=== PATIENT | male | born 1965 | race Caucasian/White ===

== ENCOUNTER → 2022-04-07 | Outpatient (CLI) | payer BC ==
[2022-04-07 08:28] VITALS: BP 136/89; PULSE 64; RESP 18; TEMP 98.4
--- NOTE | 2022-04-07 08:54 | P.CON ---
Consult Note - . Consult date: 04/07/22 Assessment/Plan:: HISTORY OF PRESENT ILLNESS: 56 yr old male as a referral from Dr Paez NPC presents today with severe and chronic LBP secondary to DDD and facet arthropathy for evaluation. He states his pain level is 5 out of 10 in intensity, constant, stabbing, sharp pain in the left lower aspects of his lumbar spine with radiation of pain to his L knee and foot. Pain is provoked with heat, standing and walking. Pain is alleviated with medications ([place], axial), injections, ice, 8 weeks stent of physical therapy in December 2021, chiropractic treatment one month ago but his and [employer] said no, massage in the past which worsened his pain, home stretching regimen, repositioning and rest. PMH: Hyperlipidemia, GERD PSH: L Lumbar RFA x 2 SH: Negative x 3. Works in [employer] FH: Non contributory All: NKDA Meds: See list REVIEW OF ORGAN SYSTEMS: CONSTITUTIONAL: No fevers or chills. No recent weight loss. HEENT: No visual acuity loss, eye pain, difficulties with hearing. No nosebleeds. No difficulty swallowing. RESPIRATORY: Denies any troubles with breathing or dyspnea on exertion. CARDIOVASCULAR: Denies any chest pain, palpitations, or recent heart attacks. GASTROINTESTINAL: Denies fatty food intolerance. Has change in bowel habits and gas bloat. GENITOURINARY: Denies any blood in urine. Has increased urinary frequency. NEUROLOGICAL: + numbness and tingling along the distal extremities. No seizure disorders or headaches. MUSCULOSKELETAL: + back pain SKIN: No skin cancer. No rash. PSYCHIATRIC: Denies current depression or suicidal thoughts. ENDOCRINE: Denies current thyroid disorders. Denies any blood sugar glucose intolerance. HEME/LYMPHATIC: Denies any lumps and bumps around the neck. History of deep venous thrombosis. ALLERGY/IMMUNOLOGY: No immunoglobulin therapy. No immune deficiencies. BREAST: Denies current breast lumps, pain or nipple discharge. Physical Examinations : Constitutional : Cooperative , not in acute distress . HEENT: Neck supple. No Lymphadenopathy. Normal thyroid size . Eyes no ptosis , no icterus, no photophobia . Hearing intact. Normal oropharynx. No Thrush. Respiratory : Chest clear to auscultations bilaterally. No wheezing. No rhonchi. Cardiovascular : Regular rate and rhythm , S1 / S2. No S3 . No S4. Gastrointestinal : Abdomen soft. No tenderness. Bowel sounds x 4. No organomegaly . Genitourinary : Deferred. Neurologic : Cranial nerve II to XII intact. No focal neurological deficits. Psychiatric : alert & oriented x 3. Matching mood & appropriate affect. Judgment & insight intact. Lymphatic No Lymphadenopathy. Musculoskeletal : Cervical Spine Motor strength in the deltoid and biceps: Normal right side. Normal Left side Motor strength biceps and the wrist extensors: Normal right side . Normal left side Motor strength in the triceps muscle: Normal right side. Normal left side Deep tendon reflexes: Normal at the biceps. Normal at Brachioradialis. Normal at triceps Cervical facet loading test: positive bilaterally Spurling test: positive bilaterally Neck distraction test: positive bilaterally Malick sign: positive bilaterally Lumbar spine Motor strength lower extremities ,thigh and legs 5/5 Right side , 5/5 Left side Deep tendon reflexes : Normal Knee Jerk. Normal Ankle Jerk Vertebral body tenderness over Lumbar facet Loading Test: positive Right / positive Left over L4-L5, L5-S1 Range of motion of the lumbar spine Flexion 30 degrees, extension 10 degrees Straight Leg Raise test: Left/ Right positive at degree Cheri test: positive right / positive left. Severe tenderness over the Sacroiliac joint on the Right / Left sides Gaenslen test: positive bilaterally Seated flexion test: positive bilaterally. Sacral spine : Severe tenderness over the Sacroiliac joint: right side / left side Range of motion: Flexion of the lumbar spine <60 degrees Range of motion: Extension of the lumbar spine <20 degrees Gaenslen's Test positive Ruperto's Test positive Cheri test: positive right side / left side Thigh Thrust Test Sacral Thrust Test Imaging: X ray of Lumbar spine from 03/04/22 reviewed Assessment/ Plan : Lumbar DDD MRI without contrast of Lumbar spine re: M51.36 Obtain records of L RFA L3-L5 from a [facility] physician's office All questions answered. I have spent greater than 50 minutes on patient care today. Dr Alcala was available by phone for the evaluation of this patient. The time was used to review the medical records including relevant urine studies and Prescription history (MAPs), review of the available imaging, evaluation and examination of the patient, coordination of care with the medical staff and if applicable referring physicians, as well as creation of the medical record PQRS Measure Charge Sheet Mode of Arrival: Ambulatory - Pain Location Lower Back Non-Pharmacological Interventions: Chiropractic Treatment, Ice, Massage, Physical Therapy Pharmacological Interventions: Epidural, PRN Medication, Scheduled Medication, Topical Medication PQRS Narrative: Blood Pressure 136/89 Pain Intensity [Lower Back] 5 Scale Used Numeric (1 - 10) Hx Alcohol Use (MH) No
== END | disposition home or self-care (01) ==
LOC: PNWHC3 07:51
PROVIDERS: ATTEND Specialist
DX: M54.50 Low back pain, unspecified (principal)
CPT/HCPCS: 99211

== ENCOUNTER → 2022-08-26 | Outpatient (CLI) | payer BC ==
[2022-08-26 08:04] VITALS: BP 145/93; PULSE 68; RESP 18
--- NOTE | 2022-08-26 13:00 | P.PAINPG ---
PQRS Measure Charge Sheet Comment: A 57 yr old male with a history of severe and chronic low back pain secondary to lumbar degenerative disc diseases and lumbar spondylosis with facet arthropathy without myelopathy presents today for evaluation for MRI and medication refills. Pain level is currently at 5/10 in intensity, constant, localized in lumbar spine, stabbing in character w shooting towards the BLEs. Pain is provoked by cold weather and laying supine for periods of 2 hr or more. Pain is alleviated with PT in 2020 without relief, home stretching regimen, massage therapy weekly, chiropractic treatments discontinued due to recommendation from Ortho, heat, ice without relief, medications ([place], Lyrica), repositioning and rest. Interventional pain procedures completed include Denies Patient is currently on [place], Lyrica Patient denies any side effects of the medication(s), denies excessive drowsiness or sleepiness, denies suicidal ideation and reports that the current pain medication is helping to control the pain and improve activities of daily living. Patient denies any motor or sensory deficits. Patient denies any fever or night sweats, denies any change in the bowel movements or urination. Physical Examination: -Constitutional: Cooperative. Not in acute distress . - Neurologic: Cranial nerve II to XII intact. No focal neurological deficits. - Psychatric: Alert & oriented x 3. Matching mood & appropriate affect. Judgment and insight intact. - Musculoskeletal: Cervical spine: Muscle bulk/ tone/ strength in the bilateral upper extremities normal Vertebral body tenderness to palpation over Spurling test positive Distraction test positive Facet loading test positive Thoracic spine Muscle bulk / tone/ strength in the bilateral paraspinal muscles normal Vertebral body tender to palpation over Facet loading test positive Lumbar spine: Motor bulk/ tone/ strength lower extremities , thigh and legs : 5/5 Deep tendon reflexes : Normal Knee Jerk. Normal Ankle Jerk . Vertebral body tenderness to palpation over Lumbar Facet Loading Test positive w jump reflex over BL L4-L5, L5-S1 facets Straight Leg Raise: positive at 30 degrees right side/ left side Gaenslen's Test positive Sacral spine : Severe tenderness over the Sacroiliac joint: right side / left side Range of motion: Flexion of the lumbar spine <60 degrees Range of motion: Extension of the lumbar spine <20 degrees Gaenslen's Test positive Ruperto's Test positive Cheri test: positive right side / left side Thigh Thrust Test Sacral Thrust Test Imaging: MRI without contrast of the lumbar spine from 08/21/22 reviewed. Assessment and plan: Chronic low back pain secondary to lumbar degenerative disc disease , lumbar spondylosis with facet arthropathy without myelopathy Recommendation of BL RFA L4-L5, L5-S1. Pt states he's had an RFA previously at [facility] w Dr Mtz. Will obtain records. Risks, benefits of procedure discussed and pt verbalized understanding. Denies anticoagulant use or medical history of diabetes. All patient questions answered I have spent less than 30 minutes on patient care today. Dr Alcala was kay ilable by phone for the evaluation of this patient. The time was used to review the medical records including relevant urine studies and Prescription history (MAPs), review of the available imaging, evaluation and examination of the patient, coordination of care with the medical staff and if applicable referring physicians, as well as creation of the medical record PQRS Narrative: Hx Alcohol Use (MH) No Controlled Substance Measures - Controlled Substance Measures Is patient prescribed a controlled substance at discharge?: No
== END | disposition home or self-care (01) ==
LOC: PNWHC3 07:18
PROVIDERS: ATTEND Specialist
DX: M47.896 Other spondylosis, lumbar region (principal)
CPT/HCPCS: 99211

== ENCOUNTER 2022-10-15 12:31 | Day surgery (SDC) | payer BC ==
[2022-10-14 09:13] VITALS: BMI 28.8
[~2022-10-15 12:31] MED LIST: LACTATED RINGERS 1,000 ML IV SCH; LIDOCAINE 1% (10MG/ML) FOR IV START INTRADERMA PRN
[2022-10-15 13:10] VITALS: TEMP 97.2
[2022-10-15] MEDS ORDERED: MIDAZOLAM 2 MG/2 ML VIAL ONE (13:29)
[2022-10-15] MEDS ORDERED: fentaNYL (PF) 50 MCG/ML 2 ML AMP ONE (13:29)
[2022-10-15] MEDS ORDERED: LACTATED RINGERS 1,000 ML IV SCH (13:30)
--- NOTE | 2022-10-15 13:47 | P.PCN ---
Date of Procedure: 10/15/22 Description of Procedure: Pre- and Post-operative Diagnosis: Lumbar facet arthropathy, and lumbar spon dylosis without myelopathy. Procedure: Left side L4-5 radiofrequency thermocoagulation of medial branch under fluoroscopic guidance Left side L5-S1 dorsal ramus radiofrequency thermocoagulation under fluoroscopic guidance Surgeon: Nael Quinn Anesthesia: Local: 1% Lidocaine, IV sedation : Midazolam 2 mg, and fentanyl 100 micrograms. Complications: None Estimated blood loss: None. Specimen removed: None Fluoroscopic image: Saved to patient electronic medical records. Indications for Procedure: The patient is well known to pain clinic for his chronic low back pain management. The lumbar facet loading test was positive with a clinical diagnosis of lumbar facet arthropathy. Patient had marked decrease in pain after the diagnostic medial branch procedure. Came here for radiofrequency ablation for longer pain relief. PROCEDURE DESCRIPTION: The patient was seen and identified in the preoperative area. Risks, benefits, complications, and alternatives were discussed with the patient. The patient agreed to proceed with the procedure and signed the consent. IV was started. Vital signs were stable. Patient was taken to the procedure room and timeout was completed. The patient was placed in the prone position on procedure table and a pillow was placed under the abdomen to reduce lumbar lordosis. The lumbosacral area was prepped and draped in the usual sterile fashion. Critical pause was taken. Vital signs were closely monitored during the procedure. The fluoroscopic camera was placed in the anteroposterior position to identify the junction of superior articular process and its corresponding injection with its transverse process of L4, L5, S1, which were anesthetized with 1% lidocaine. We used 18-gauge 100-mm curved, sharp radiofrequency cannula with 10- mm active tip for the procedure. The first cannula was guided by fluoroscopy to the S1 superior articular process and its corresponding junction with its ala. The second cannula was guided by fluoroscopy into the L5 superior articular process and its corresponding junction with its transverse process and pedicle. The third cannula was guided by fluoroscopy into the L4 SAP and its corresponding junction with its transverse process and its pedicle. After confirmation of needle tip position on oblique view, each site underwent motor testing at 2 Hz and 0 to 2.5 volts, and there was good motor stimulation in the back and no radicular symptoms or paresthesias. After confirmation of motor testing, 0.5 mL of block solution injected at each site . Block solution contained 2 mL of 0.5% ropivacaine preservative free mixed with 40 MG of Kenalog. At this time, each site was ablated using continuous radiofrequency mode at 80 degrees Celsius for 90 seconds at each level. At the end of the procedure, each needle was retracted approximately 1 cm and the skin was infiltrated with 0.5% ropivacaine preservative free 1 ml at each site. Skin was cleansed and bandages were applied. Disposition : The patient tolerated the procedure very well. The patient was transferred to the recovery room and remained stable until discharged home. The patient was given detailed discharge instructions for infection, bleeding, and increased pain at the injection site, and was advised to seek immediate medical attention should significant side effects develop. The patient will be scheduled with Pain Clinic within 4 weeks.
[2022-10-15 13:54] VITALS: PULSE 73; RESP 16
--- NOTE | 2022-10-15 13:55 | FL ---
EXAMINATION TYPE: FL guided pain mgmt statistic DATE OF EXAM: 10/15/2022 CLINICAL HISTORY: Low back pain. TECHNIQUE: Fluoroscopy. COMPARISON: None. FINDINGS: Fluoroscopic guidance was provided during pain relief procedure performed by Dr. Carmona . A total of 13 seconds of fluoroscopic time was utilized during the procedure and 3 spot intraoperat emiliana images are acquired. Images acquired shows needle localization at several levels in the lumbar s pine. IMPRESSION: As Above.
[2022-10-15 14:03] VITALS: BP 126/88
== END 2022-10-15 14:18 | disposition home or self-care (01) ==
LOC: ORPAIN 12:31
DX: M47.816 Spondylosis without myelopathy or radiculopathy, lumbar region (principal); G89.29 Other chronic pain; E78.5 Hyperlipidemia, unspecified; K21.9 Gastro-esophageal reflux disease without esophagitis; K91.0 Vomiting following gastrointestinal surgery; M19.90 Unspecified osteoarthritis, unspecified site; Z79.1 Long term (current) use of non-steroidal anti-inflammatories (NSAID); Z79.899 Other long term (current) drug therapy; Z98.890 Other specified postprocedural states
CPT/HCPCS: 64635; 64636; J2250; J3010

== ENCOUNTER → 2022-11-04 | Outpatient (CLI) | payer BC ==
[2022-11-04 08:16] VITALS: BP 135/83; PULSE 71; RESP 18; TEMP 98.4
--- NOTE | 2022-11-04 08:33 | P.PAINPG ---
Subjective Progress Note Date: 11/04/22 Principal diagnosis: Lumbar back pain Mr. Yo is a 57 -year-old pleasant male came to the [facility] pain clinic for postprocedure evaluation follow-up visit for left L4-L5, and L5-S1 medial branch radiofrequency ablation on 10/15/2022 . Patient has ongoing pain for many years. As per patient he had more than 90% pain relief. Patient describes pain is aching, throbbing, type of pain. His pain is not radiating to his lower extremities. Patient rated pain levels are 2 out of 10 in severity. With the help of medications pain levels are 2-4 out of 10 in severity. Activities making pain worse. Medications, resting, interventional procedures helping in relieving patient's pain. Patient pain some days better than others. Overall activities improved after intervention procedures. Denied any side effects with the medications. Denied any bowel or bladder problems at this time. He is not using any walking aids at this time. Patient denies any suicidal or homicidal ideations intent or plan. Patient denies any auditory or visual hallucinations. Patient denied any red flag symptoms related to pain. 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 Sensation grossly intact Lower extremity: Normal strength, and normal range of motion. Sensation grossly intact. Lumbar spine: Paravertebral tenderness: positive , multiple trigger points positive Lumbar facet load test : positive Sacroiliac joint tenderness: Negative Thigh thrust test: Negative - Constitutional Constitutional Comment(s): 13 points review of symptoms negative except as mentioned in the history of present illness. Assessment and Plan Assessment: Lumbar spondylosis without myelopathy Myofascial pain syndrome Chronic pain syndrome Plan: #1 Diagnoses, prognosis, and multiple treatment options including but not limited to physical therapy, interventional therapy, adjunct medication therapy, narcotic medication, and surgical options were discussed with the patient. And all questions were answered to the patient's satisfaction. #2 treatment plan agreement : Patient was thoroughly discussed regarding the treatment options, alternatives, and importance of exercises as tolerated. Patient clearly understood. #3 Patient was counseled on importance of regular exercise. Including grazyna chi, aerobic exercises as tolerated. Which helps for chronic pain, and overall well- being. Patient also counseled regarding importance of weight control rolling chronic pain, and overall other health issues. By altering diet habits, minimizing sugar intake, and processed foods helps in minimizing Inflammation. #4 investigations: MAPS- reviewed , urine drug test-none #5 diagnostic tests: None at this time #6 consultation : None # 7 interventional procedures: None at this time. #8 medications #1 Tylenol 500 mg by mouth every 12 to every 8 hours as needed, total dose not more than 2 g per day Medication side effects, complications, long-term consequences discussed with the patient. Patient recommended to contact the pain clinic if noticed any issues with given medications. #9 morphine milligrams equivalents dose ( MME) per day: 0 from the pain clinic. # 10 TENS unit's, and percussion massage device #11 disposition: scheduled to follow up with pain clinic as needed in future Time with Patient: Less than 30 PQRS Measure Charge Sheet Measure #130: Documentation of Current Meds in Medical Chart: Patient's medications documented in chart Measure #226: Tobacco Use: Screen & Cessation Intervention: Pt not a tobacco user Measure #111: Pneumonia Vaccination: Pneumococcal vaccine NOT administered or previously given Measure #47: Advance Care Plan: Advance care planning discussed & documented, pt chose/unable to give Measure #412: Opioid Treatment Agreement: No documentation of signed opioid treatment agreement Measure #408: Opioid Therapy Follow-up Evaluation: Patient had NO f/u eval minimum every 3 months during opioid therapy Measure #317: Preventitive Care & Scrn High Bld Press & F/U: Normal blood pressure, f/u not required Measure #128: Body Mass Index (BMI) Screening & Follow-up: BMI documented within normal parameters Measure #131: Pain Assessment & Follow-up: Pain positive & plan documented Measure #431: Unhealthy Alcohol Use Preventative Care & Scrn: Patient not identified as an unhealthy alcohol user Mode of Arrival: Ambulatory - Pain Location Left Lower Back Non-Pharmacological Interventions: Ice Pharmacological Interventions: Block, Scheduled Medication PQRS Narrative: Blood Pressure 135/83 Pain Intensity [Left Lower 2 Back] Scale Used Numeric (1 - 10) Hx Alcohol Use (MH) No Home Medications: Ambulatory Orders HYDROcodone/APAP 7.5-325MG [[place] 7.5-325] 1 tab PO Q6HR PRN 10/14/22 Omeprazole 20 mg PO DAILY 10/14/22 Simvastatin [Zocor] 20 mg PO DAILY 10/14/22 Controlled Substance Measures - Controlled Substance Measures Is patient prescribed a controlled substance at discharge?: No
== END ==
LOC: PNWHC3 07:55
DX: M47.816 Spondylosis without myelopathy or radiculopathy, lumbar region (principal); M79.10 Myalgia, unspecified site; G89.4 Chronic pain syndrome
CPT/HCPCS: 99211

== ENCOUNTER → 2024-01-27 | Outpatient (CLI) | payer BC ==
[2024-01-27 17:04] LABS: HCT 46.5 % (39.6-50.0); HGB 15.3 g/dL (13.0-17.0); MCH 29.7 pg (27.0-32.0); MCHC 32.9 g/dL (32.0-37.0); MCV 90.3 FL (80.0-97.0); Mean Platelet Volume 11.6 FL (9.5-12.2); NRBC Per 100 WBC 0 X 10*3/uL (0.00-0.01); Platelet Count 289 X 10*3/uL (140-440); RBC 5.15 X 10*6/uL (4.40-5.60); RDW 13.2 % (11.5-14.5); WBC 6.34 X 10*3/uL (4.50-10.00)
[2024-01-27 17:29] LABS: Carbon Dioxide 27.5 mmol/L (21.6-31.8); Chloride 106 mmol/L (96-109); Potassium 4.9 mmol/L (3.5-5.5); Sodium 142 mmol/L (135-145)
== END | disposition home or self-care (01) ==
LOC: LABPAT 09:31
PROVIDERS: ATTEND Internal Medicine Interventional Cardiology
DX: Z01.812 Encounter for preprocedural laboratory examination (principal); I49.3 Ventricular premature depolarization
CPT/HCPCS: 36415; 80051; 82565; 84520; 85027

== ENCOUNTER → 2024-02-01 | Day surgery (SDC) | payer BC ==
[~2024-02-01] MED LIST changes: +ALPRAZolam 0.25 MG TAB PO PRN; +ALPRAZolam 0.5 MG TAB PO PRN; +ASPIRIN 325 MG TAB PO ONE; +ASPIRIN 81 MG PO SCH; +ATORVASTATIN 20 MG TAB PO SCH; +HEPARIN SODIUM 1,000 UN/ML (10ML VL) ONE; +HEPARIN SODIUM,PORCINE (1 ML) 2,500 UNIT in SODIUM CHLORIDE 0.9% 250 ML IRRIGATION PRN; +HEPARIN SODIUM,PORCINE 10,000 UNIT in SODIUM CHLORIDE 0.9% 1,000 ML IRRIGATION PRN; -LACTATED RINGERS 1,000 ML IV SCH; -LIDOCAINE 1% (10MG/ML) FOR IV START INTRADERMA PRN; +METOPROLOL SUCCINATE (ER) 25 MG TAB.ER.24H PO SCH; +NITROGLYCERIN SL TABS 0.4 MG TAB SUBLINGUAL PRN; +RX INFO: IV CONTRAST WAS GIVEN 1 EACH MISC MISCELLANE PRN; +SODIUM CHLORIDE 0.9% 1,000 ML IV SCH; +VERAPAMIL 2.5 MG/ML 2 ML AMP ONE; +fentaNYL (PF) 50 MCG/ML 2 ML AMP ONE
[2024-02-01] MEDS: SODIUM CHLORIDE 0.9% 1,000 ML in EMPTY BAG 1 BAG IV SCH (07:40)
[2024-02-01 07:48] VITALS: RESP 16; TEMP 96.6
[2024-02-01] MEDS: MIDAZOLAM 2 MG/2 ML VIAL IVP ONE (09:47)
[2024-02-01] MEDS: fentaNYL (PF) 50 MCG/ML 2 ML AMP IVP ONE ×2 (09:47)
[2024-02-01] MEDS: LIDOCAINE 2% (PF) 20 MG/ML 5 ML VIAL SQ ONE (09:48)
[2024-02-01] MEDS: VERAPAMIL SYRINGE (5 MG/10 ML) INTRAARTER ONE (09:50)
[2024-02-01] MEDS: HEPARIN SODIUM 1,000 UN/ML (10ML VL) IVP ONE (09:54)
[2024-02-01] MEDS: IOPAMIDOL-370 100ML BTL INJ ONE (10:13)
--- NOTE | 2024-02-01 10:18 | P.CARDCATH ---
Date of Procedure: 02/01/24 Description of Procedure: Cardiac Catheterization: The patient is a 58-year-old male who recently was found evidence of cardiomyopathy in addition to frequent ventricular ectopic activity. He has a history of hyperlipidemia. Recommendations were made regarding cardiac catheterization, the risks and the complications were discussed with the patient who is in full understanding and agreement. Procedure Description: Patient was brought to lab support tech in fasting semi-sedated state after receiving Fentanyl and Benadryl achieiving moderate conscious sedated state. Using Xylocaine Anesthesia and modified Seldinger technique, a 6-Indian sheath was introduced in the right radial artery . Subsequently, selective coronary angiography was performed using a 5-Indian 3.5 bend Bety catheter. Multiple views of the coronary artery including hemiaxial views were obtained. The right Bety catheter was used to cross the aortic valve and LVEDP was calculated. Following that, catheter and sheath were removed. Hemostasis was obtained with deployment of vascular band . There was no immediate complication. Patient was returned to room in stable condition. Of note, the patient received a total of 4500 units of intravenous heparin as well as intra-arterial verapamil. Findings: Left main: This is a large size vessel, bifurcating into LAD and left circumflex, left main has no obstructive disease LAD: This is a large size vessel, giving rise to a large proximal diagonal branch. The LAD and its branches have no significant obstructive disease Left circumflex: This is a nondominant vessel giving rise to 1 large obtuse marginal branch that has a 20% plaque in the midsegment the rest of the vessel has no high-grade stenosis RCA: This is a dominant vessel, bifurcating distally to PDA and PLV. The proximal right coronary artery has a 20% eccentric plaque, the rest of the vessel has no high-grade stenosis Left Ventriculogram: Not performed Hemodynamics: There was no gradient across the aortic valve, LVEDP was 8-10 mmHg Conclusion: 1. Mild obstructive disease in the left circumflex and RCA 2. No significant obstructive disease in the LAD 3. Right dominance 4. Normal LVEDP Recommendations: The patient will continue on present medical regimen, he will be further evaluated regarding the etiology of his cardiomyopathy is possible cardiac MRI to guide his treatment. The findings and the recommendations were discussed with the patient and the family and they were in full understanding and agreement. Duration of sedation is 15 minutes.
[2024-02-01 12:48] VITALS: BP 118/71; PULSE 54
== END | disposition home or self-care (01) ==
LOC: CATHCVL 07:23
PROVIDERS: ATTEND Internal Medicine Interventional Cardiology
DX: I21.9 Acute myocardial infarction, unspecified (principal); I42.8 Other cardiomyopathies; I73.9 Peripheral vascular disease, unspecified; E78.2 Mixed hyperlipidemia; I49.3 Ventricular premature depolarization; Z79.82 Long term (current) use of aspirin; Z79.899 Other long term (current) drug therapy
CPT/HCPCS: 93458; C1769 ×3; C1894; J2250; J3010; J1644; Q9967; J2001

== ENCOUNTER → 2024-04-30 | Outpatient (CLI) | payer BC ==
[2024-04-30 14:29] VITALS: BP 149/85; PULSE 72; RESP 16
--- NOTE | 2024-04-30 15:03 | P.PAINPG ---
PQRS Measure Charge Sheet Comment: A 58 yr old male with a history of severe and chronic LBP > 6 mo secondary to DDD and spondylosis with facet arthropathy without myelopathy presents today for evaluation. Pt underwent a L RFA L3-L5 in Oct 2022 when he experienced 99% pain relief x 2 yrs s/p procedure. Pain level is provoked at 6 /10 in intensity, constant, localized in the lumbar spine, predominantly axial, sharp in character w occasional shooting towards the BL hips and RLE. Pain is provoked by repositioning, heat. Pain is alleviated with PT x 6 wks which ended in Aug 2023 (lumbar), physician guided exercises every other day since Aug 2023, massage therapy weekly x 3 mo in Nov 2022 (cervical), chiropractic treatments as needed w last appt in Oct 2022, ice, medications, repositioning and rest. Oswestry axial pain score of 17. Interventional pain procedures completed include L RFA L3-L5 (Oct 2022), DESEAN C5- C6 x1 Patient is currently on [place], Advil Patient denies any side effects of the medication(s), denies excessive drowsiness or sleepiness, denies suicidal ideation and reports that the current pain medication is helping to control the pain and improve activities of daily living. Patient denies any motor or sensory deficits. Patient denies any fever or night sweats, denies any change in the bowel movements or urination. Physical Examination: -Constitutional: Cooperative. Not in acute distress . - Neurologic: Cranial nerve II to XII intact. No focal neurological deficits. - Psychatric: Alert & oriented x 3. Matching mood & appropriate affect. Judgment and insight intact. - Musculoskeletal: Cervical spine: Muscle bulk/ tone/ strength in the bilateral upper extremities normal Vertebral body tenderness to palpation over Spurling test positive Distraction test positive Facet loading test positive Thoracic spine Muscle bulk / tone/ strength in the bilateral paraspinal muscles normal Vertebral body tender to palpation over Facet loading test positive Lumbar spine: Motor bulk/ tone/ strength lower extremities , thigh and legs : 5/5 Deep tendon reflexes : Normal Knee Jerk. Normal Ankle Jerk . Vertebral body tenderness to palpation over Lumbar Facet Loading Test positive L L4-L5, L5-S1 Straight Leg Raise: positive at 30 degrees right side/ left side Gaenslen's Test positive Sacral spine : Severe tenderness over the Sacroiliac joint: right side / left side Range of motion: Flexion of the lumbar spine <60 degrees Range of motion: Extension of the lumbar spine <20 degrees Gaenslen's Test positive Cheri test: positive right side / left side Thigh Thrust Test Sacral Thrust Test Imaging: MRI non contrast of the lumbar spine from 08/21/22 reviewed Assessment and plan: Chronic neck pain and LBP secondary to DDD, spondylosis with facet arthropathy without myelopathy Recommendation of L RFA L3-L5. Exhibited substantial pain relief w prior L RFA L3-L5 procedure. Risks, benefits of procedure discussed and pt verbalized understanding. Protocol for discontinuation/ continuation of medications chito procedure discussed. Minimal anesthesia including Fentanyl and Versed if clinically indicated. All patient questions answered I have spent less than 30 minutes on patient care today. Dr Alcala was available by phone for the evaluation of this patient. The time was used to review the medical records including relevant urine studies and Prescription history (MAPs), review of the available imaging, evaluation and examination of the patient, coordination of care with the medical staff and if applicable referring physicians, as well as creation of the medical record - Pain Location Lower Back Non-Pharmacological Interventions: Inactivity, Sitting Pharmacological Interventions: Epidural PQRS Narrative: Hx Alcohol Use (MH) No Home Medications: Ambulatory Orders HYDROcodone/APAP 7.5-325MG [[place] 7.5-325] 1 tab PO Q6HR PRN 10/14/22 Omeprazole 20 mg PO DAILY 10/14/22 Simvastatin [Zocor] 40 mg PO DAILY 10/14/22 Aspirin 81 mg PO DAILY 01/27/24 Cetirizine HCl [Zyrtec] 10 mg PO DAILY 01/27/24 Metoprolol Succinate [Metoprolol Succinate ER] 25 mg PO DAILY 01/27/24 Controlled Substance Measures - Controlled Substance Measures Is patient prescribed a controlled substance at discharge?: No
== END ==
LOC: PNWHC3 14:14
PROVIDERS: ATTEND Specialist
DX: M51.37 Other intervertebral disc degeneration, lumbosacral region (principal); M47.817 Spondylosis without myelopathy or radiculopathy, lumbosacral region
CPT/HCPCS: 99211

== ENCOUNTER → 2024-05-25 | Day surgery (SDC) | payer BC ==
[2024-05-23 15:21] VITALS: BMI 29.3
[~2024-05-25] MED LIST changes: -ALPRAZolam 0.25 MG TAB PO PRN; -ALPRAZolam 0.5 MG TAB PO PRN; -ASPIRIN 325 MG TAB PO ONE; -ASPIRIN 81 MG PO SCH; -ATORVASTATIN 20 MG TAB PO SCH; -HEPARIN SODIUM 1,000 UN/ML (10ML VL) ONE; -HEPARIN SODIUM,PORCINE (1 ML) 2,500 UNIT in SODIUM CHLORIDE 0.9% 250 ML IRRIGATION PRN; -HEPARIN SODIUM,PORCINE 10,000 UNIT in SODIUM CHLORIDE 0.9% 1,000 ML IRRIGATION PRN; -METOPROLOL SUCCINATE (ER) 25 MG TAB.ER.24H PO SCH; +MIDAZOLAM 2 MG/2 ML VIAL ONE; -NITROGLYCERIN SL TABS 0.4 MG TAB SUBLINGUAL PRN; +ROPIVACAINE 5MG/ML 20ML VIAL ONE; -RX INFO: IV CONTRAST WAS GIVEN 1 EACH MISC MISCELLANE PRN; -SODIUM CHLORIDE 0.9% 1,000 ML IV SCH; +TRIAMCINOLONE ACETONIDE 40 MG/ML 1 ML VIAL ONE; -VERAPAMIL 2.5 MG/ML 2 ML AMP ONE; +hydrALAZINE HCL 20 MG/ML 1 ML VIAL ONE
[2024-05-25 08:29] VITALS: TEMP 97.7
[2024-05-25] MEDS: LACTATED RINGERS 1,000 ML IV SCH (08:42)
[2024-05-25] MEDS: IV FLUID CONTINUATION 1,000 ML IV ONE ×2 (08:44→09:57)
--- NOTE | 2024-05-25 09:54 | P.PCN ---
Date of Procedure: 05/25/24 Description of Procedure: Pre- and Post-operative Diagnosis: Lumbar facet arthropathy, and lumbar spon dylosis without myelopathy. Procedure: Left side L4-5 radiofrequency thermocoagulation of medial branch under fluoroscopic guidance Left side L5-S1 dorsal ramus radiofrequency thermocoagulation under fluoroscopic guidance Surgeon: Nael Quinn Anesthesia: Local: 1% Lidocaine, IV sedation : Midazolam 2 mg, and fentanyl 100 micrograms. patient was examined and appeared to the procedure. Sedation R and supervision timings: [id number] [phone] Complications: None Estimated blood loss: None. Specimen removed: None Fluoroscopic image: Saved to patient electronic medical records. Indications for Procedure: The patient is well known to pain clinic for his chronic low back pain management. The lumbar facet loading test was positive with a clinical diagnosis of lumbar facet arthropathy. Patient had marked decrease in pain after the diagnostic medial branch procedure. Came here for radiofrequency ablation for longer pain relief. PROCEDURE DESCRIPTION: The patient was seen and identified in the preoperative area. Risks, benefits, complications, and alternatives were discussed with the patient. The patient agreed to proceed with the procedure and signed the consent. IV was started. Vital signs were stable. Patient was taken to the procedure room and timeout was completed. The patient was placed in the prone position on procedure table and a pillow was placed under the abdomen to reduce lumbar lordosis. The lumbosacral area was prepped and draped in the usual sterile fashion. Critical pause was taken. Vital signs were closely monitored during the procedure. The fluoroscopic camera was placed in the anteroposterior position to identify the junction of superior articular process and its corresponding injection with its transverse process of L4, L5, S1, which were anesthetized with 1% lidocaine. We used 18-gauge 100-mm curved, sharp radiofrequency cannula with 10- mm active tip for the procedure. The first cannula was guided by fluoroscopy to the S1 superior articular process and its corresponding junction with its ala. The second cannula was guided by fluoroscopy into the L5 superior articular process and its corresponding junction with its transverse process and pedicle. The third cannula was guided by fluoroscopy into the L4 SAP and its corresponding junction with its transverse process and its pedicle. After confirmation of needle tip position on oblique view, each site underwent motor testing at 2 Hz and 0 to 2.5 volts, and there was good motor stimulation in the back and no radicular symptoms or paresthesias. After confirmation of motor testing, 0.5 mL of block solution injected at each site . Block solution contained 1 mL of 0.5% ropivacaine preservative free mixed with 40 MG of Kenalog. At this time, each site was ablated using continuous radiofrequency mode at 80 degrees Celsius for 90 seconds at each level. At the end of the procedure, each needle was retracted approximately 1 cm and the skin was infiltrated with 0.5% ropivacaine preservative free 1 ml at each site. Skin was cleansed and bandages were applied. preop VAS: 3 out of 10 Postop VAS: 1 out of 10 Disposition : The patient tolerated the procedure very well. The patient was transferred to the recovery room and remained stable until discharged home. The patient was given detailed discharge instructions for infection, bleeding, and increased pain at the injection site, and was advised to seek immediate medical attention should significant side effects develop. The patient will be scheduled with Pain Clinic within 4 weeks.
[2024-05-25 10:03] VITALS: RESP 16
[2024-05-25 10:31] VITALS: PULSE 72
[2024-05-25 10:56] VITALS: BP 101/62
[2024-05-25 15:32] LABS: Hepatitis B Surface Antigen Nonreactive (Nonreactive); Hepatitis C IgG Antibody Nonreactive (Nonreactive)
--- NOTE | 2024-05-25 20:45 | FL ---
EXAMINATION TYPE: FL guided pain mgmt statistic DATE OF EXAM: 05/25/2024 FLUOROSCOPY Left lumbar Rad Freq 11sec fluoro time .[id number] Carmona 4 images submitted.
== END ==
LOC: ORPAIN 07:40
DX: M47.816 Spondylosis without myelopathy or radiculopathy, lumbar region (principal); G89.29 Other chronic pain; Z79.82 Long term (current) use of aspirin
CPT/HCPCS: 86803; 86701; 87340; 64635; 64636; 99152; 99153; J2250; J0360; J3301; J3010; J2795

== ENCOUNTER → 2024-08-22 | Outpatient (CLI) | payer BC ==
[2024-08-22 14:47] VITALS: BP 143/72; PULSE 60; RESP 16
--- NOTE | 2024-08-23 13:55 | P.PAINPG ---
PQRS Measure Charge Sheet Comment: A 59 yr old male with a history of severe and chronic LBP > 6 mo secondary to radiculopathy, spondylosis with facet arthropathy without myelopathy presents today for evaluation. Pain level is provoked at 7 /10 in intensity, intermittent, localized in the R lumbar spine, predominantly axial, sharp in character without shooting pain. Pain is provoked by repositioning, heat. Pain is alleviated with PT x 6 wks which ended in Aug 2023 (lumbar), physician guided exercises every other day since Aug 2023, massage therapy weekly x 3 mo in Nov 2022 (cervical), chiropractic treatments as needed w last appt in Oct 2022, ice, medications, repositioning and rest. Interventional pain procedures completed include L RFA L3-L5 x2 (Oct 2022, Jun 2024), DESEAN C5-C6 x1 Patient is currently on [place], Advil Patient denies any side effects of the medication(s), denies excessive drowsiness or sleepiness, denies suicidal ideation and reports that the current pain medication is helping to control the pain and improve activities of daily living. Patient denies any motor or sensory deficits. Patient denies any fever or night sweats, denies any change in the bowel movements or urination. Physical Examination: -Constitutional: Cooperative. Not in acute distress . - Neurologic: Cranial nerve II to XII intact. No focal neurological deficits. - Psychatric: Alert & oriented x 3. Matching mood & appropriate affect. Judgment and insight intact. - Musculoskeletal: Cervical spine: Muscle bulk/ tone/ strength in the bilateral upper extremities normal Vertebral body tenderness to palpation over Spurling test positive Distraction test positive Facet loading test positive Thoracic spine Muscle bulk / tone/ strength in the bilateral paraspinal muscles normal Vertebral body tender to palpation over Facet loading test positive Lumbar spine: Motor bulk/ tone/ strength lower extremities , thigh and legs : 5/5 Deep tendon reflexes : Normal Knee Jerk. Normal Ankle Jerk . Vertebral body tenderness to palpation over Lumbar Facet Loading Test positive R L4-L5, L5-S1 Straight Leg Raise: positive at 30 degrees right side/ left side Gaenslen's Test positive Sacral spine : Severe tenderness over the Sacroiliac joint: right side / left side Range of motion: Flexion of the lumbar spine <60 degrees Range of motion: Extension of the lumbar spine <20 degrees Gaenslen's Test positive Cheri test: positive right side / left side Thigh Thrust Test Sacral Thrust Test Imaging: MRI non contrast of the lumbar spine from 08/21/22 reviewed Assessment and plan: Chronic neck pain and LBP secondary to radiculopathy, spondylosis with facet arthropathy without myelopathy Recommendation of R LILIB L4-L5, L5-1 #1. Risks, benefits of procedure discussed and pt verbalized understanding. Protocol for discontinuation/ continuation of medications chito procedure discussed. Minimal anesthesia including Fentanyl and Versed if clinically indicated. All patient questions answered I have spent less than 30 minutes on patient care today. Dr Alcala was available by phone for the evaluation of this patient. The time was used to review the medical records including relevant urine studies and Prescription history (MAPs), review of the available imaging, evaluation and examination of the patient, coordination of care with the medical staff and if applicable referring physicians, as well as creation of the medical record PQRS Narrative: Hx Alcohol Use (MH) No Home Medications: Ambulatory Orders HYDROcodone/APAP 7.5-325MG [[place] 7.5-325] 1 tab PO Q6HR PRN 10/14/22 Omeprazole 20 mg PO DAILY 10/14/22 Simvastatin [Zocor] 40 mg PO DAILY 10/14/22 Aspirin 81 mg PO DAILY 01/27/24 Cetirizine HCl [Zyrtec] 10 mg PO DAILY 01/27/24 Metoprolol Succinate [Metoprolol Succinate ER] 25 mg PO DAILY 01/27/24 Acetaminophen-Codeine 300-30mg [Tylenol w/codeine #3] 1 tab PO Q4H PRN 3 Days #18 tablet 08/22/24 Controlled Substance Measures - Controlled Substance Measures Is patient prescribed a controlled substance at discharge?: Yes When asked, does pt state using other controlled substances?: Yes If prescribed controlled substance>3 days was MAPS reviewed?: Prescribed <3 Days
== END ==
LOC: PNWHC3 13:25
PROVIDERS: ATTEND Anesthesiology
CPT/HCPCS: 99211

== ENCOUNTER → 2024-09-25 | Day surgery (SDC) | payer BC ==
[2024-09-21 12:09] VITALS: BMI 28.5
[~2024-09-25] MED LIST changes: -TRIAMCINOLONE ACETONIDE 40 MG/ML 1 ML VIAL ONE; -hydrALAZINE HCL 20 MG/ML 1 ML VIAL ONE
[2024-09-25] MEDS: IV FLUID CONTINUATION 1,000 ML IV ONE ×2 (06:18→07:20)
[2024-09-25] MEDS: LACTATED RINGERS 1,000 ML IV SCH (06:31)
[2024-09-25 06:34] VITALS: TEMP 98
--- NOTE | 2024-09-25 07:17 | P.PCN ---
Date of Procedure: 09/25/24 Procedure(s) Performed: PREOPERATIVE DIAGNOSIS : 1- Lumbar spondylosis with Facet Arthropathy with out myelopathy . 2- Lumber degenerative disc disease POSTOPERATIVE DIAGNOSIS: 1- Lumbar spondylosis with Facet Arthropathy without myelopathy . 2- Lumber degenerative disc disease PROCEDURE: Diagnostic Right L3 , L4 , and L5 medial branch block under fluoroscopy guidance(fluoroscopy images available in the radiology Department ) ( To target the facet joint between Right L4-5 , and L5-S1 )#1st ANESTHESIA: moderate sedation with intravenous Versed 2 mg and Fentanyl 50 mcg.(Sedation started at 07:07, ended 07:13 ) EBL: Minimal COMPLICATION: None PROCEDURE INDICATION: Chronic low back pain secondary to Facet arthropathy unresponsive to conservative treatment. PROCEDURE DESCRIPTION: the patient was seen and identified in the preop holding area , risks and benefits and possible complications of the procedure and alternative were discussed with the patient, and the patient agreed to proceed with the procedure and signed the consent and vital signs monitored during the procedure and fluoroscopy was used to maximize the benefit and accuracy of the needle placement, and sedation was given to decrease patient anxiety, patient was taken to the procedure room and placed in prone position vital signs monitored in the back prepped with chlorhexidine X3 then under strict sterile technique using a right oblique fluoroscopy ,the junction of the transverse process and the superior articulating process of the right L3 , L4 , and L5 vertebra which corresponding to the fluoroscopy image of the eye of the Migel dog on the block side for the medial branches and subsequently , after local infiltration of skin and subcu tissuies with Ropivacaine 0.5 % , one mL at each level ,then 22-gauge Quincke-type needles , 3 needle was used , each one of them placed at the junction of the base of the transverse process and the superior articular process at the appropriate level, and the needle was advanced until the periosteum contacted, needle placement confirmed with AP oblique and lateral view and after appropriate needle placement confirmed, and after negative aspiration for heme and CSF and there was no paresthesia 1-1/2 mL of R opivacaine 0.5% , then half mL injected at each level after negative aspiration the needle subsequently removed . At the end of the procedure and the needles removed and a bandage applied after the skin was cleaned the cleaning solution patient taken to recovery room in stable condition and monitors in the recovery room for 20-30 minutes and discharged home in stable condition after discharge criteria met and patient will follow up with the pain clinic in 2-4 weeks
[2024-09-25 07:39] VITALS: BP 135/83; PULSE 66; RESP 16
--- NOTE | 2024-09-25 08:48 | FL ---
EXAMINATION TYPE: FL guided pain mgmt statistic DATE OF EXAM: 09/25/2024 8:21 AM COMPARISON: Pre Operative Images if available both CT/MRI or plain film CLINICAL INDICATION: Male, 59 years old with history of PAIN; TECHNIQUE: FL guided pain mgmt statistic, multiple fluoroscopic images provided for procedure. Total fluoroscopy time: 8.8 2 Total submitted images to PACS: 6 DAP: 0.41135 mGym2 Gycm2 uGym2 cGycm2 or equivalent. FINDINGS: Fluoroscopic images during injection for pain management demonstrate multilevel degeneration changes throughout the spine. No evidence for fracture. No acute process identified. IMPRESSION: 1. No evidence for intraoperative complication. 2. Please see the operative/procedural note for further details. [facility], , 09/25/2024 8:46 AM
== END ==
LOC: ORPAIN 06:05
PROVIDERS: ATTEND Specialist
DX: M47.816 Spondylosis without myelopathy or radiculopathy, lumbar region (principal); M51.369 Other intervertebral disc degeneration, lumbar region without mention of lumbar back pain or lower extremity pain; G89.29 Other chronic pain; I10 Essential (primary) hypertension; Z79.82 Long term (current) use of aspirin; Z79.899 Other long term (current) drug therapy
CPT/HCPCS: 64493; 64494; J2250; J3010; J2795

== ENCOUNTER → 2024-10-15 | Outpatient (CLI) | payer BC ==
[2024-10-15 10:31] VITALS: BP 130/87; PULSE 57; RESP 16; TEMP 97.6
--- NOTE | 2024-10-15 15:19 | P.PAINPG ---
PQRS Measure Charge Sheet Comment: A 59 yr old male with a history of severe and chronic LBP > 6 mo secondary to radiculopathy, spondylosis with facet arthropathy without myelopathy presents today for evaluation s/p R MBB L4-L5, L5-1 #1. Pt states he experienced 100% pain relief x 3 days s/p procedure. Pain level is provoked at 9 /10 in inte nsity, intermittent, localized in the R lumbar spine, predominantly axial, sharp in character without shooting pain. Pain is provoked by repositioning, heat. Pain is alleviated with PT x 6 wks which ended in Aug 2023 (lumbar), physician guided exercises every other day since Aug 2023, massage therapy weekly x 3 mo in Nov 2022 (cervical), chiropractic treatments as needed w last appt in Oct 2022, ice, medications, repositioning and rest. Interventional pain procedures completed include L RFA L3-L5 x2 (Oct 2022, Jun 2024), DESEAN C5-C6 x1, R MBB L3-L5 x1 Patient is currently on [place], Advil Patient denies any side effects of the medication(s), denies excessive drowsiness or sleepiness, denies suicidal ideation and reports that the current pain medication is helping to control the pain and improve activities of daily living. Patient denies any motor or sensory deficits. Patient denies any fever or night sweats, denies any change in the bowel movements or urination. Physical Examination: -Constitutional: Cooperative. Not in acute distress . - Neurologic: Cranial nerve II to XII intact. No focal neurological deficits. - Psychatric: Alert & oriented x 3. Matching mood & appropriate affect. Judgment and insight intact. - Musculoskeletal: Cervical spine: Muscle bulk/ tone/ strength in the bilateral upper extremities normal Vertebral body tenderness to palpation over Spurling test positive Distraction test positive Facet loading test positive Thoracic spine Muscle bulk / tone/ strength in the bilateral paraspinal muscles normal Vertebral body tender to palpation over Facet loading test positive Lumbar spine: Motor bulk/ tone/ strength lower extremities , thigh and legs : 5/5 Deep tendon reflexes : Normal Knee Jerk. Normal Ankle Jerk . Vertebral body tenderness to palpation over Lumbar Facet Loading Test positive R L4-L5, L5-S1 Straight Leg Raise: positive at 30 degrees right side/ left side Gaenslen's Test positive Sacral spine : Severe tenderness over the Sacroiliac joint: right side / left side Range of motion: Flexion of the lumbar spine <60 degrees Range of motion: Extension of the lumbar spine <20 degrees Gaenslen's Test positive Cheri test: positive right side / left side Thigh Thrust Test Sacral Thrust Test Imaging: MRI non contrast of the lumbar spine from 08/21/22 reviewed Assessment and plan: Chronic neck pain and LBP secondary to radiculopathy, spondylosis with facet arthropathy without myelopathy Recommendation of R MBB L4-L5, L5-1 #2. Risks, benefits of procedure discussed and pt verbalized understanding. Protocol for discontinuation/ continuation of medications chito procedure discussed. Minimal anesthesia including Fentanyl and Versed if clinically indicated. All patient questions answered I have spent less than 30 minutes on patient care today. Dr Alcala was available by phone for the evaluation of this patient. The time was used to review the medical records including relevant urine studies and Prescription history (MAPs), review of the available imaging, evaluation and examination of the patient, coordination of care with the medical staff and if applicable referring physicians, as well as creation of the medical record PQRS Narrative: Hx Alcohol Use (MH) No Home Medications: Ambulatory Orders HYDROcodone/APAP 7.5-325MG [[place] 7.5-325] 1 tab PO Q6HR PRN 10/14/22 Omeprazole 20 mg PO DAILY 10/14/22 Simvastatin [Zocor] 40 mg PO DAILY 10/14/22 Aspirin 81 mg PO DAILY 01/27/24 Cetirizine HCl [Zyrtec] 10 mg PO DAILY 01/27/24 Metoprolol Succinate [Metoprolol Succinate ER] 25 mg PO DAILY 01/27/24 Controlled Substance Measures - Controlled Substance Measures Is patient prescribed a controlled substance at discharge?: No
== END ==
LOC: PNWHC3 08:30
PROVIDERS: ATTEND Specialist
DX: M47.26 Other spondylosis with radiculopathy, lumbar region (principal)
CPT/HCPCS: 99211

== ENCOUNTER 2024-10-25 10:52 | Day surgery (SDC) | payer BC ==
[2024-10-25] MEDS: IV FLUID CONTINUATION 1,000 ML IV ONE (11:02)
[2024-10-25 11:11] VITALS: TEMP 97.4
[2024-10-25] MEDS: LACTATED RINGERS 1,000 ML BAG IV STA (11:19)
[2024-10-25] MEDS ORDERED: fentaNYL (PF) 50 MCG/ML 2 ML AMP ONE (12:09)
[2024-10-25] MEDS ORDERED: ROPIVACAINE 5MG/ML 20ML VIAL ONE (12:09)
--- NOTE | 2024-10-25 12:18 | P.PCN ---
Date of Procedure: 10/25/24 Procedure(s) Performed: PREOPERATIVE DIAGNOSIS : 1- Lumbar spondylosis with Facet Arthropathy without myelopathy . 2- Lumber degenerative disc disease POSTOPERATIVE DIAGNOSIS: 1- Lumbar spondylosis with Facet Arthropathy without myelopathy . 2- Lumber degenerative disc disease PROCEDURE: Diagnostic Right L3 , L4 , and L5 medial branch block under fluoroscopy guidance(fluoroscopy images available in the radiology Department ) ( To target the facet joint between Right L4-5 , and L5-S1 )# 2nd ANESTHESIA: moderate sedation with intravenous Fentanyl 100 mcg.(Sedation started at 12:09, ended 12:15 ) EBL: Minimal COMPLICATION: None PROCEDURE INDICATION: Chronic low back pain secondary to Facet arthropathy unresponsive to conservative treatment. PROCEDURE DESCRIPTION: the patient was seen and identified in the preop holding area , risks and benefits and possible complications of the procedure and alternative were discussed with the patient, and the patient agreed to proceed with the procedure and signed the consent and vital signs monitored during the procedure and fluoroscopy was used to maximize the benefit and accuracy of the needle placement, and sedation was given to decrease patient anxiety, patient was taken to the procedure room and placed in prone position vital signs monitored in the back prepped with chlorhexidine X3 then under strict sterile technique using a right oblique fluoroscopy ,the junction of the transverse process and the superior articulating process of the right L3 , L4 , and L5 vertebra which corresponding to the fluoroscopy image of the eye of the Migel dog on the block side for the medial branches and subsequently , after local infiltration of skin and subcu tissuies with Ropivacaine 0.5 % , one mL at each level ,then 22-gauge Quincke-type needles , 3 needle was used , each one of them placed at the junction of the base of the transverse process and the superior articular process at the appropriate level, and the needle was advanced until the periosteum contacted, needle placement confirmed with AP oblique and lateral view and after appropriate needle placement confirmed, and after negative aspiration for heme and CSF and there was no paresthesia 1-1/2 mL of Ropivacaine 0.5% , then half mL injected at each level after negative aspiration the needle subsequently removed . At the end of the procedure and the needles removed and a bandage applied after the skin was cleaned the cleaning solution patient taken to recovery room in stable condition and monitors in the recovery room for 20-30 minutes and discharged home in stable condition after discharge criteria met and patient will follow up with the pain clinic in 2-4 weeks
[2024-10-25] MEDS: IV FLUID CONTINUATION 700 ML IV ONE (12:25)
[2024-10-25 12:28] VITALS: RESP 16
--- NOTE | 2024-10-25 12:44 | FL ---
Fluoroscopy History: Ozzie Lumbar Facet RIGHT LUMBAR FACET BLOCK. FL TIME 11.2 SECS DAP 0.0561 [facility], , 10/25/2024 12:41 PM
[2024-10-25 12:56] VITALS: BP 154/87; PULSE 54
== END 2024-10-25 12:56 | disposition home or self-care (01) ==
LOC: ORPAIN 10:52
PROVIDERS: ATTEND Specialist
DX: M47.816 Spondylosis without myelopathy or radiculopathy, lumbar region (principal); G89.29 Other chronic pain; M51.369 Other intervertebral disc degeneration, lumbar region without mention of lumbar back pain or lower extremity pain; Z79.82 Long term (current) use of aspirin; Z79.899 Other long term (current) drug therapy
CPT/HCPCS: 64493; 64494; 99152; J3010; J2795

== ENCOUNTER → 2024-11-21 | Outpatient (CLI) | payer BC ==
[2024-11-21 08:50] VITALS: BP 138/92; PULSE 65; RESP 17; TEMP 97.8
--- NOTE | 2024-11-21 16:03 | P.PAINPG ---
PQRS Measure Charge Sheet Comment: A 59 yr old male with a history of severe and chronic LBP > 6 mo secondary to radiculopathy, spondylosis with facet arthropathy without myelopathy presents today for evaluation s/p R MBB L4-L5, L5-1 #2. Pt states he experienced 80% pain relief x 3 days s/p procedure. Pt also completed L RFA L4-L5/ L5-S1 on 05/25/24 where he states he experienced 80% pain relief s/p procedure. Pain level is provoked at 8 /10 in intensity, intermittent, localized in the R lumbar spine, predominantly axial, sharp in character without shooting pain. Pain is provoked by repositioning, heat. Pain is alleviated with PT x 6 wks which ended in Aug 2023 (lumbar), physician guided exercises every other day since Aug 2023, massa ge therapy weekly x 3 mo in Nov 2022 (cervical), chiropractic treatments as needed w last appt in Oct 2022, ice, medications, repositioning and rest. Interventional pain procedures completed include L RFA L3-L5 x2 (Oct 2022, Jun 2024), DESEAN C5-C6 x1, R MBB L3-L5 x2 Patient is currently on [place], Advil Patient denies any side effects of the medication(s), denies excessive drowsiness or sleepiness, denies suicidal ideation and reports that the current pain medication is helping to control the pain and improve activities of daily living. Patient denies any motor or sensory deficits. Patient denies any fever or night sweats, denies any change in the bowel movements or urination. Physical Examination: -Constitutional: Cooperative. Not in acute distress . - Neurologic: Cranial nerve II to XII intact. No focal neurological deficits. - Psychatric: Alert & oriented x 3. Matching mood & appropriate affect. Judgment and insight intact. - Musculoskeletal: Cervical spine: Muscle bulk/ tone/ strength in the bilateral upper extremities normal Vertebral body tenderness to palpation over [place]ling test positive Distraction test positive Facet loading test positive Thoracic spine Muscle bulk / tone/ strength in the bilateral paraspinal muscles normal Vertebral body tender to palpation over Facet loading test positive Lumbar spine: Motor bulk/ tone/ strength lower extremities , thigh and legs : 5/5 Deep tendon reflexes : Normal Knee Jerk. Normal Ankle Jerk . Vertebral body tenderness to palpation over Lumbar Facet Loading Test positive R L4-L5, L5-S1 Straight Leg Raise: positive at 30 degrees right side/ left side Gaenslen's Test positive Sacral spine : Severe tenderness over the Sacroiliac joint: right side / left side Range of motion: Flexion of the lumbar spine <60 degrees Range of motion: Extension of the lumbar spine <20 degrees Gaenslen's Test positive Cheri test: positive right side / left side Thigh Thrust Test Sacral Thrust Test Imaging: MRI non contrast of the lumbar spine from 08/21/22 reviewed Assessment and plan: Chronic neck pain and LBP secondary to radiculopathy, spondylosis with facet arthropathy without myelopathy Recommendation of R RFA L4-L5, L5-1. Risks, benefits of procedure discussed and pt verbalized understanding. Protocol for discontinuation/ continuation of medications chito procedure discussed. Minimal anesthesia including Fentanyl and Versed if clinically indicated. All patient questions answered I have spent less than 30 minutes on patient care today. Dr Alcala was available by phone for the evaluation of this patient. The time was used to revi ew the medical records including relevant urine studies and Prescription history (MAPs), review of the available imaging, evaluation and examination of the patient, coordination of care with the medical staff and if applicable referring physicians, as well as creation of the medical record PQRS Narrative: Hx Alcohol Use (MH) No Home Medications: Ambulatory Orders HYDROcodone/APAP 7.5-325MG [[place] 7.5-325] 1 tab PO Q6HR PRN 10/14/22 Omeprazole 20 mg PO DAILY 10/14/22 Simvastatin [Zocor] 40 mg PO DAILY 10/14/22 Aspirin 81 mg PO DAILY 01/27/24 Cetirizine HCl [Zyrtec] 10 mg PO DAILY 01/27/24 Metoprolol Succinate [Metoprolol Succinate ER] 25 mg PO DAILY 01/27/24 Controlled Substance Measures - Controlled Substance Measures Is patient prescribed a controlled substance at discharge?: No
== END ==
LOC: PNWHC3 07:59
PROVIDERS: ATTEND Specialist
DX: M47.27 Other spondylosis with radiculopathy, lumbosacral region (principal)
CPT/HCPCS: 99211

== ENCOUNTER → 2025-04-29 | Outpatient (CLI) | payer BC ==
[2025-04-29 08:37] VITALS: BP 135/84; PULSE 99; RESP 16
--- NOTE | 2025-04-29 15:57 | P.PAINPG ---
Objective - Vital Signs Vital signs: Vital Signs Temp Pulse 99 04/29/25 08:30 Resp 16 04/29/25 08:30 BP 135/84 04/29/25 08:30 Pulse Ox 97 04/29/25 08:30 FiO2 Intake & Output 04/28/25 04/29/25 04/29/25 18:59 06:59 18:59 Weight 88.451 kg PQRS Measure Charge Sheet Mode of Arrival: Ambulatory Comment: A 59 yr old male with a history of severe and chronic LBP > 6 mo secondary to radiculopathy, spondylosis with facet arthropathy without myelopathy presents today for evaluation s/p R RFA L4-L5, L5-S1. Pt states he experienced 80% pain relief s/p procedure. Pain level is provoked at 3-8 /10 in intensity, intermittent, localized in the R lumbar spine, predominantly axial, sharp in character without shooting pain. Pain is provoked by repositioning, heat. Pain is alleviated with PT x 6 wks which ended in Aug 2023 (lumbar), physician guided exercises every other day since Aug 2023, massage therapy weekly x 3 mo in Nov 2022 (cervical), chiropractic treatments as needed w last appt in Oct 2022, ice, medications, repositioning and rest. Interventional pain procedures completed include L RFA L3-L5 x2 (Oct 2022, Jun 2024), DESEAN C5-C6 x1, R RFA L3-L5 (01/01) Patient is currently on [place], Advil Patient denies any side effects of the medication(s), denies excessive drowsiness or sleepiness, denies suicidal ideation and reports that the current pain medication is helping to control the pain and improve activities of daily living. Patient denies any motor or sensory deficits. Patient denies any fever or night sweats, denies any change in the bowel movements or urination. Physical Examination: -Constitutional: Cooperative. Not in acute distress . - Neurologic: Cranial nerve II to XII intact. No focal neurological deficits. - Psychatric: Alert & oriented x 3. Matching mood & appropriate affect. Judgment and insight intact. - Musculoskeletal: Cervical spine: Muscle bulk/ tone/ strength in the bilateral upper extremities normal Vertebral body tenderness to palpation over Spurling test positive Distraction test positive Facet loading test positive Thoracic spine Muscle bulk / tone/ strength in the bilateral paraspinal muscles normal Vertebral body tender to palpation over Facet loading test positive Lumbar spine: Motor bulk/ tone/ strength lower extremities , thigh and legs : 5/5 Deep tendon reflexes : Normal Knee Jerk. Normal Ankle Jerk . Vertebral body tenderness to palpation over Lumbar Facet Loading Test positive R L4-L5, L5-S1 Straight Leg Raise: positive at 30 degrees right side/ left side Gaenslen's Test positive Sacral spine : Severe tenderness over the Sacroiliac joint: right side / left side Range of motion: Flexion of the lumbar spine <60 degrees Range of motion: Extension of the lumbar spine <20 degrees Gaenslen's Test positive Cheri test: positive right side / left side Thigh Thrust Test Sacral Thrust Test Imaging: MRI non contrast of the lumbar spine from 08/21/22 reviewed Assessment and plan: Chronic neck pain and LBP secondary to radiculopathy, spondylosis with facet arthropathy without myelopathy Recommendation of R iliolumbar ligament #1. Risks, benefits of procedure discussed and pt verbalized understanding. All patient questions answered I have spent less than 30 minutes on patient care today. Dr Alcala was available by phone for the evaluation of this patient. The time was used to review the medical records including relevant urine studies and Prescription history (MAPs), review of the available imaging, evaluation and examination of the patient, coordination of care with the medical staff and if applicable refe rring physicians, as well as creation of the medical record - Pain Location Bilateral Lower Back Non-Pharmacological Interventions: Chiropractic Treatment, Home Exercise, Massage, Physical Therapy Pharmacological Interventions: Block, PRN Medication, Scheduled Medication PQRS Narrative: Narcotic Agreement Date Signed 11/21/24 Blood Pressure 135/84 Pain Intensity [Bilateral 8 Lower Back] Scale Used Numeric (1 - 10) Hx Alcohol Use (MH) No Home Medications: Ambulatory Orders HYDROcodone/APAP 7.5-325MG [[place] 7.5-325] 1 tab PO Q6HR PRN 10/14/22 Omeprazole 20 mg PO DAILY 10/14/22 Simvastatin [Zocor] 40 mg PO DAILY 10/14/22 Aspirin 81 mg PO DAILY 01/27/24 Cetirizine HCl [Zyrtec] 10 mg PO DAILY 01/27/24 Metoprolol Succinate [Metoprolol Succinate ER] 25 mg PO DAILY 01/27/24 Fluticasone Nasal [place] [Flonase Nasal [place]] 1 spray EA NOSTRIL 12/11/24 Controlled Substance Measures - Controlled Substance Measures Is patient prescribed a controlled substance at discharge?: No
== END ==
LOC: PNWHC3 08:19
PROVIDERS: ATTEND Specialist
DX: M47.26 Other spondylosis with radiculopathy, lumbar region (principal); M47.22 Other spondylosis with radiculopathy, cervical region
CPT/HCPCS: 99212

== ENCOUNTER 2025-05-17 06:08 | Day surgery (SDC) | payer BC ==
[2025-05-15 16:05] VITALS: BMI 30.5
[~2025-05-17 06:08] MED LIST changes: +LACTATED RINGERS 1,000 ML IV SCH; -MIDAZOLAM 2 MG/2 ML VIAL ONE; -ROPIVACAINE 5MG/ML 20ML VIAL ONE; -fentaNYL (PF) 50 MCG/ML 2 ML AMP ONE
[2025-05-17 06:33] VITALS: TEMP 97.4
[2025-05-17] MEDS ORDERED: ROPIVACAINE 5 MG/ML 30 ML VIAL ONE (06:58)
[2025-05-17] MEDS ORDERED: methylPREDNISolone ACETATE 40 MG/ML 1 ML VIAL ONE (06:58)
[2025-05-17 07:16] VITALS: RESP 18
--- NOTE | 2025-05-17 07:18 | P.PCN ---
Description of Procedure: Preprocedure diagnosis. Bilateral iliolumbar ligament pain. Postprocedure diagnosis. As above. Procedure done. Right iliolumbar ligament injection with local anesthetics and steroid under fluoroscopic guidance. Anesthesia. Local infiltration of local anesthetics. Blood loss. None. Indication. Discussed the procedure and possible complications which may include infection bleeding nerve damage paralyzes aggravation of pain all of which could be permanent. Patient understands and QUESTIONS were answered. Procedure note. After getting consent patient was taken to OR in prone position. Back prepped with chlorhexidine and draped in sterile fashion. After injecting 5 mL of plain 1% lidocaine subcutaneously a 22-gauge spinal needle was introduced under tunnel vision of the fluoroscope on the RIGHT iliolumbar ligament area just below the right L5 transverse process. The needle position confirmation by AP and crosstable lateral view of the fluoroscope, after negative aspiration, 1.5 mL solution was injected which consists of 1 mL of 40 mg Depo-Medrol mixed with 0.5 ml of 0.5% Ropivacaine. [place] were taken out. Disposition. Patient tolerated the procedure well. No complication. Discharged home in stable condition.
[2025-05-17 07:33] VITALS: BP 135/89; PULSE 89
--- NOTE | 2025-05-17 08:11 | FL ---
EXAMINATION TYPE: FL guided pain mgmt statistic DATE OF EXAM: 05/17/2025 7:20 AM COMPARISON: Pre Operative Images if available both CT/MRI or plain film CLINICAL INDICATION: Male, 59 years old with history of INJ SNG TENDON SHEATH/LIGMENT; TECHNIQUE: FL guided pain mgmt statistic, multiple fluoroscopic images provided for procedure. DAP: 0.19582 mGym2 Gycm2 uGym2 cGycm2 or equivalent. FINDINGS: Fluoroscopic images during injection for pain management demonstrate multilevel degeneration changes throughout the spine. No evidence for fracture. No acute process identified. IMPRESSION: 1. No evidence for intraoperative complication. 2. Please see the operative/procedural note for further details. [facility], , 05/17/2025 8:09 AM
== END 2025-05-17 07:34 | disposition home or self-care (01) ==
LOC: ORPAIN 06:08
PROVIDERS: ATTEND Pain Medicine Interventional Pain Medicine
DX: M47.816 Spondylosis without myelopathy or radiculopathy, lumbar region (principal); M46.06 Spinal enthesopathy, lumbar region
CPT/HCPCS: 20550; J2795; J1010

== ENCOUNTER 2025-05-27 18:53 | Outpatient (CLI) | payer BC ==
--- NOTE | 2025-05-30 18:13 | P.PCN ---
Description of Procedure: POLYSOMNOGRAPHY REPORT PROCEDURE(S)/DATE(S): Polysomnography 05/27/2025 CLINICAL: Patient has been seen in the sleep center for evaluation of obstructive sleep apnea-hypopnea syndrome. Please see my consultation. Sleep study has been done for evaluation of patient breathing during the sleep. PROCEDURE: The standard montage for clinical polysomnography included the electroencephalogram, the electrooculogram, the mentalis surface electromyography and Lead II cardiography. The respiratory battery consisted of measurements of nasal/buccal air flow, pressure transducer measurements from nose, thoracic and/or abdominal effort and intercostal surface electromyography. Video monitoring has been done to check for any parasomnia events. Nocturnal oxyhemoglobin saturations were obtained by finger oximetry. Step-ledesma titration with positive airway pressure was utilized to control the respiratory events, if necessary. RESULTS: During the diagnostic sleep study sleep efficiency was slightly decreased to 84.1%. Latency to sleep onset was borderline 28.5 min. Sleep architecture showed stage NI was significantly increased to 18.8%, Delta sleep was absent 0%, REM sleep was short 7.6%. Respiratory channel showed 0 obstructive apneas, 2 mixed apneas, 1 central apneas, 110 hypopneas with lowest oxygen level 86%. Total apnea hypopnea index was 16.6. Heart rate was in the range between 39 and 58, average 51. EMG showed 31.6 periodic limb movements per hour with 0.1 micro-arousals per hour. IMPRESSIONS: 1. Moderate obstructive sleep apnea hypopnea syndrome. 2. Significant periodic limb movements have been documented. Please see other impressions from consultation PLAN: 1. The patient will have AutoPAP treatment for correction of respiratory abnormalities during the sleep. 2. Losing weight program. 3. Sleep hygiene with regular time in bed for at least 7-1/2 hours. 4. No driving if feeling sleepiness. 5. Please check iron profile including ferritin level. Low level of iron may increase the risk for periodic limb movements. 6. I will see patient for follow-up visit to explain results of the test, evaluate clinical response on treatment, compliance with treatment and [place] adjustments related to mask fitting pressure and humidification. Thank you very much for allowing me to participate in the management of your patient. Sincerely, Henry Steward MD, PhD, FAASM. Diplomat of [place] [employer], Sleep Medicine Board by [place] [employer] [facility] [place] cc: Heraclio Dale MD
== END 2025-05-28 05:40 | disposition home or self-care (01) ==
LOC: 3 N SLEEP 18:53
PROVIDERS: ATTEND Internal Medicine
DX: G47.33 Obstructive sleep apnea (adult) (pediatric) (principal); G47.61 Periodic limb movement disorder
CPT/HCPCS: 95810